=== PATIENT | male | born 1960 | race Two or more races ===

== ENCOUNTER 2017-10-07 13:16 | Emergency (ER) | payer OTHER ==
[~2017-10-07] VITALS: Ht 180.3 cm; Wt 136.1 kg
[2017-10-07] MEDS ORDERED: VANCOMYCIN 2 GM in IV DEXTROSE 5 %-0.45 % NACL 500 ML IV ONE (14:15)
[2017-10-07] MEDS ORDERED: PIPERACILLIN/TAZOBACTAM 4.5 GM in IV DEXTROSE 5% 100 ML IV ONE (14:15)
[2017-10-07] MEDS ORDERED: IV NORMAL SALINE 1000ML BAG 1,000 ML IV ONE (14:15)
[2017-10-07] MEDS ORDERED: MORPHINE SULFATE 10 MG/ML VIAL. IV ONE (14:30)
[2017-10-07] MEDS ORDERED: PIPERACILLIN/TAZO IV Push 4.5 GM VIAL. IVP ONE (14:30)
--- NOTE | 2017-10-07 14:51 | RAD ---
Indication: Scrotal swelling and sore. Concern for abscess. Technique: Grayscale, color-flow, and spectral waveform analysis was performed. Findings: Right testicle measures 5.3 x 3.2 x 2.9 cm and the left 5.0 x 3.1 x 2.8 cm. Both are homogeneous in echotexture without increase or decrease in color flow. There are small bilateral hydroceles. There is skin thickening. At the area of concern in the left scrotal wall where there is an open sore, there is a hypoechoic potential developing fluid collection without any peripheral color flow. This collection measures 1.6 x 1.2 x 0.8 cm. Impression: 1. Scrotal wall thickening with potential small phlegmonous change or developing abscess at the area of concern near the open sore. 2. Negative for testicular torsion or mass. 3. Small bilateral hydroceles.
[2017-10-07 15:22] LABS: BASO # 0.1 x10^3/uL (0.0-0.2); BASO % 1 % (0-3); EOS % 3 % (0-3); HEMOGLOBIN 15.9 g/dL (13.0-17.5); LYMPH # 1.2 x10^3/uL (1.0-4.8); LYMPH % 11 % (24-48); MEAN CORPUSCULAR HEMOGLOBIN 33 pg (25-35); MEAN CORPUSCULAR HGB CONC 33 g/dL (31-37); MEAN CORPUSCULAR VOLUME 100 fL (79-100); MONO % 8 % (0-9); NEUT % 77 % (31-73); PLATELET COUNT 293 x10^3/uL (140-400); RED CELL DISTRIBUTION WIDTH 13.1 % (11.5-14.5); WHITE BLOOD COUNT 11.2 x10^3/uL (4.0-11.0)
[2017-10-07 15:37] LABS: CALCIUM 8.8 mg/dL (8.5-10.1); CREATININE 0.9 mg/dL (0.7-1.3); POTASSIUM 4.1 mmol/L (3.5-5.1)
[2017-10-07 15:42] LABS: ALBUMIN 3.7 g/dL (3.4-5.0); ALBUMIN/GLOBULIN RATIO 0.8 (1.0-1.7); TOTAL BILIRUBIN 1.1 mg/dL (0.2-1.0); TOTAL PROTEIN 8.3 g/dL (6.4-8.2)
--- NOTE | 2017-10-07 16:06 | RAD ---
CT of the abdomen and pelvis without contrast, 10/07/2017: History: Scrotal swelling, Anuja gangrene Noncontrasted scans were obtained and extended down through the scrotal level. The unopacified liver is unremarkable. No gallbladder abnormality is seen. The pancreas shows no abnormality. The spleen is of normal size. The unopacified kidneys show no evidence of obstruction. There is mild aortoiliac calcific plaquing without evidence of aneurysm. No retroperitoneal, mesenteric or iliac adenopathy is evident. There are mildly prominent inguinal lymph nodes. The largest of these on the left measures approximately 17 x 39 mm. The prostate gland and seminal vesicles are unremarkable. The urinary bladder shows no abnormality. The bowel loops are not dilated. A portion of the appendix is visualized and it shows no abnormality. No free air or free fluid is evident in the abdomen or pelvis. There is diffuse edematous thickening of the scrotal christiansen. No discrete abscess is seen within these edematous christiansen, although that may be difficult to visualize on these noncontrast scans. There are no gas collections in the scrotal wall. The testicles are unremarkable. Postsurgical changes with instrumentation are noted in the lower thoracic spine. There are mild scattered degenerative changes in the lumbar spine. IMPRESSION: 1. No acute intra-abdominal or pelvic abnormality is detected. 2. Moderate nonspecific diffuse scrotal wall edema. 3. Mild left inguinal adenopathy. PQRS Compliance Statement: One or more of the following individualized dose reduction techniques were utilized for this examination: 1. Automated exposure control 2. Adjustment of the mA and/or kV according to patient size 3. Use of iterative reconstruction technique
--- NOTE | 2017-10-07 16:21 | PHYS DOC ---
Past Medical History Past Medical History: Arthritis, Hypertension Additional Past Medical Histor: ABSCESS Past Surgical History: Knee Replacement Additional Past Surgical Histo: BX KNEE REPLACEMENT Alcohol Use: Heavy Additional Information: PT REPORTS HE IS A DAILY DRINKER. Drug Use: None Adult General Chief Complaint Chief Complaint: ABSCESS HPI HPI Patient is a 56 year old male who presents with a large abscess to his groin with swelling, redness and pain. He denies nausea or vomiting. He denies fever at home. He states that he believes this started 5-6 days ago. He states he felt like he had an extra testicle between his legs it was very hard and then he noticed that the swelling was increasing. He started to develop swelling in his penis as well as thickening and hardness to the skin of the scrotum. He has not taken any medication for this issue. Review of Systems Review of Systems Constitutional: Denies fever or chills [] Respiratory: Denies cough or shortness of breath [] Cardiovascular: No additional information not addressed in HPI [] GI: Denies abdominal pain, nausea, vomiting, bloody stools or diarrhea [] : See HPI Musculoskeletal: Denies back pain or joint pain [] Integument: Denies rash or skin lesions [] Neurologic: Denies headache, focal weakness or sensory changes [] Endocrine: Denies polyuria or polydipsia [] All other systems were reviewed and found to be within normal limits, except as documented in this note. Current Medications Current Medications Current Medications Medications (Trade) Dose Ordered Sig/Honey Start Time Stop Time Status Last Admin Dose Admin Morphine Sulfate 5 mg 1X ONCE 10/07/17 14:30 10/07/17 14:31 DC 10/07/17 15:03 5 MG Piperacillin Sod/ Tazobactam Sod (Zosyn) 4.5 gm ONCE ONCE 10/07/17 14:30 10/07/17 14:31 DC 10/07/17 15:08 4.5 GM Piperacillin Sod/ Tazobactam Sod 4.5 gm/Dextrose 100 ml @ 200 mls/hr 1X ONCE 10/07/17 14:15 10/07/17 14:44 UNV Sodium Chloride 1,000 ml @ 1,000 mls/hr 1X ONCE 10/07/17 14:15 10/07/17 15:14 DC 10/07/17 15:04 1,000 MLS/HR Vancomycin HCl 2 gm/Dextrose/ Sodium Chloride 500 ml @ 250 mls/hr 1X ONCE 10/07/17 14:15 10/07/17 16:14 DC 10/07/17 15:50 250 MLS/HR Allergies Allergies Allergies Coded Allergies Type Severity Reaction Last Updated Verified No Known Drug Allergies 01/09/16 No Physical Exam Physical Exam Constitutional: Well developed, well nourished, no acute distress, non-toxic appearance. [] Cardiovascular:Heart rate regular rhythm, no murmur [] Lungs & Thorax: Bilateral breath sounds clear to auscultation [] Abdomen: Bowel sounds normal, soft, no tenderness, no masses, no pulsatile masses. [] : The patient has an externally swollen erythematous scrotum with a large abscess to the lower left that is indurated, no area of fluctuance noted there is considerable thickening of the scrotal skin with erythema throughout extending into the pubis, scrotum is very edematous with the edema including the penis itself, the foreskin is retractable Neurologic: Alert and oriented X 3, normal motor function, normal sensory function, no focal deficits noted. [] Psychologic: Affect normal, judgement normal, mood normal. [] Current Patient Data Vital Signs Vital Signs Date Time Temp Pulse Resp B/P (MAP) Pulse Ox O2 Delivery O2 Flow Rate FiO2 10/07/17 19:00 101 28 110/55 (73) 95 Room Air 10/07/17 13:36 98.6 98.6 Lab Values Laboratory Tests Test 10/07/17 15:09 White Blood Count 11.2 x10^3/uL (4.0-11.0) H Red Blood Count 4.80 x10^6/uL (4.30-5.70) Hemoglobin 15.9 g/dL (13.0-17.5) Hematocrit 48.0 % (39.0-53.0) Mean Corpuscular Volume 100 fL (79-100) Mean Corpuscular Hemoglobin 33 pg (25-35) Mean Corpuscular Hemoglobin Concent 33 g/dL (31-37) Red Cell Distribution Width 13.1 % (11.5-14.5) Platelet Count 293 x10^3/uL (140-400) Neutrophils (%) (Auto) 77 % (31-73) H Lymphocytes (%) (Auto) 11 % (24-48) L Monocytes (%) (Auto) 8 % (0-9) Eosinophils (%) (Auto) 3 % (0-3) Basophils (%) (Auto) 1 % (0-3) Neutrophils # (Auto) 8.6 x10^3uL (1.8-7.7) H Lymphocytes # (Auto) 1.2 x10^3/uL (1.0-4.8) Monocytes # (Auto) 0.9 x10^3/uL (0.0-1.1) Eosinophils # (Auto) 0.3 x10^3/uL (0.0-0.7) Basophils # (Auto) 0.1 x10^3/uL (0.0-0.2) Sodium Level 138 mmol/L (136-145) Potassium Level 4.1 mmol/L (3.5-5.1) Chloride Level 97 mmol/L (98-107) L Carbon Dioxide Level 31 mmol/L (21-32) Anion Gap 10 (6-14) Blood Urea Nitrogen 10 mg/dL (8-26) Creatinine 0.9 mg/dL (0.7-1.3) Estimated GFR (Cockcroft-Gault) 87.0 BUN/Creatinine Ratio 11 (6-20) Glucose Level 98 mg/dL (70-99) Lactic Acid Level 1.6 mmol/L (0.4-2.0) Calcium Level 8.8 mg/dL (8.5-10.1) Total Bilirubin 1.1 mg/dL (0.2-1.0) H Aspartate Amino Transferase (AST) 50 U/L (15-37) H Alanine Aminotransferase (ALT) 70 U/L (16-63) H Alkaline Phosphatase 137 U/L (46-116) H Total Protein 8.3 g/dL (6.4-8.2) H Albumin 3.7 g/dL (3.4-5.0) Albumin/Globulin Ratio 0.8 (1.0-1.7) L Laboratory Tests 10/07/17 15:09 Laboratory Tests 10/07/17 15:09 EKG EKG [] Radiology/Procedures Radiology/Procedures []PATIENT: MARIANA VILLEGAS ACCOUNT: [id number] : 1960 LOCATION: ER AGE: 56 SEX: M EXAM STATUS: REG ER ORD. PHYSICIAN: FÁTIMA DEXTER APRN REASON: r/o Anuja Gangrene PROCEDURE: CT ABDOMEN PELVIS WO CONTRAST CT of the abdomen and pelvis without contrast, 10/07/2017: History: Scrotal swelling, Anuja gangrene Noncontrasted scans were obtained and extended down through the scrotal level. The unopacified liver is unremarkable. No gallbladder abnormality is seen. The pancreas shows no abnormality. The spleen is of normal size. The unopacified kidneys show no evidence of obstruction. There is mild aortoiliac calcific plaquing without evidence of aneurysm. No retroperitoneal, mesenteric or iliac adenopathy is evident. There are mildly prominent inguinal lymph nodes. The largest of these on the left measures approximately 17 x 39 mm. The prostate gland and seminal vesicles are unremarkable. The urinary bladder shows no abnormality. The bowel loops are not dilated. A portion of the appendix is visualized and it shows no abnormality. No free air or free fluid is evident in the abdomen or pelvis. There is diffuse edematous thickening of the scrotal christiansen. No discrete abscess is seen within these edematous christiansen, although that may be difficult to visualize on these noncontrast scans. There are no gas collections in the scrotal wall. The testicles are unremarkable. Postsurgical changes with instrumentation are noted in the lower thoracic spine. There are mild scattered degenerative changes in the lumbar spine. IMPRESSION: 1. No acute intra-abdominal or pelvic abnormality is detected. 2. Moderate nonspecific diffuse scrotal wall edema. 3. Mild left inguinal adenopathy. PQRS Compliance Statement: One or more of the following individualized dose reduction techniques were utilized for this examination: 1. Automated exposure control 2. Adjustment of the mA and/or kV according to patient size 3. Use of iterative reconstruction technique DICTATED and SIGNED BY: EDUARD FREDERICK MD DATE: 10/07/171552 CC: FÁTIMA DEXTER APRN; JAYLA ORTEGA DO; NO PCP ~ Impressions: Signed PATIENT: MARIANA VILLEGAS ACCOUNT: [id number] : 1960 LOCATION: ER AGE: 56 SEX: M EXAM STATUS: REG ER ORD. PHYSICIAN: FÁTIMA DEXTER APRN REASON: SCROTAL SWELLING/SORE/R/O ABSCESS PROCEDURE: TESTICULAR/SCROTUM Indication: Scrotal swelling and sore. Concern for abscess. Technique: Grayscale, color-flow, and spectral waveform analysis was performed. Findings: Right testicle measures 5.3 x 3.2 x 2.9 cm and the left 5.0 x 3.1 x 2.8 cm. Both are homogeneous in echotexture without increase or decrease in color flow. There are small bilateral hydroceles. There is skin thickening. At the area of concern in the left scrotal wall where there is an open sore, there is a hypoechoic potential developing fluid collection without any peripheral color flow. This collection measures 1.6 x 1.2 x 0.8 cm. Impression: 1. Scrotal wall thickening with potential small phlegmonous change or developing abscess at the area of concern near the open sore. 2. Negative for testicular torsion or mass. 3. Small bilateral hydroceles. DICTATED and SIGNED BY: LUZ ELENA ANNA MD DATE: 10/07/17 1445 CC: FÁTIMA DEXTER APRN; JAYLA ORTEGA DO; NO PCP ~ Course & Med Decision Making Course & Med Decision Making Pertinent Labs and Imaging studies reviewed. (See chart for details) []1. Scrotal abscess Dr. Bryant was consulted in the care of this patient. He declined surgical intervention at [facility] in deference to a urologist handling the case. The patient is requesting to be transferred to [facility] for further evaluation and treatment of his abscess. The patient was given Zosyn and vancomycin in the emergency department via IV. Care of this patient has been signed off to Dr. Ortega. I did assume care of this patient as stated, and did assess the patient initially upon arrival with nurse practitioner Fátima Guerrero as well. Examination is consistent with scrotal cellulitis and abscess formation, no evidence of Anuja gangrene, imaging does not reveal evidence of any tracking gas or other concerning findings. Laboratory studies revealed mild leukocytosis , patient is resting comfortably after receiving pain medication in the emergency department, IV antibiotics initiated without issue. Patient also noted to have elevated LFTs, Patient states that he does drink daily, between 4- 10 beers, but denies any history of withdrawal symptoms. I did discuss with patient that we do not have urology available at [facility] at this time, and he will require transfer to Hospital urology is available for additional evaluation and management. Patient states that he would like to be transferred to [facility]. I did discuss findings as above with nurse practitioner Renita Boyce of the [facility] urology group, patient to be evaluated by urology at [facility], and via the transfer line, I did speak to Dr. Ronquillo, internal medicine at [facility], patient was accepted to his service for transfer to the medical telemetry bed. I did update patient on these discussions, patient remains agreeable plan as stated, and written consent was obtained. Imaging was clouded and sent to [facility]. Transportation was arranged via EMS, and patient was transferred to EMS without issue, remaining in stable condition with pain well managed at time of transport. Dragon Disclaimer Dragon Disclaimer This electronic medical record was generated, in whole or in part, using a voice recognition dictation system. Departure Impression: Primary Impression: Scrotal abscess Additional Impression: Cellulitis of scrotum Disposition: TRANSFER OTHER Condition: IMPROVED Referrals: NO PCP (PCP) Departure Departure Impression: Primary Impression: Scrotal abscess Additional Impression: Cellulitis of scrotum Disposition: 05 TRANSFER OTHER Condition: IMPROVED Referrals: NO PCP (PCP) Problem Qualifiers FÁTIMA DEXTER APRN Oct 07, 2017 16:21 JAYLA ORTEGA DO Oct 07, 2017 20:56
[2017-10-07 19:00] VITALS: BP 110/55
== END 2017-10-07 19:31 | disposition short-term general hospital (02) ==
LOC: ER 13:16
DX: N49.2 Inflammatory disorders of scrotum (principal); N43.3 Hydrocele, unspecified; I10 Essential (primary) hypertension; D72.829 Elevated white blood cell count, unspecified; F10.10 Alcohol abuse, uncomplicated
CPT/HCPCS: 36415; 74176; 76870; 80053; 83605; 85025; 87040; 96361; 96365; 96366; 96375; 99285; J2270; J2543; J3370; J7030

== ENCOUNTER → 2018-03-17 | Outpatient (CLI) | payer OTHER ==
[2018-03-17] MEDS: ZOLPIDEM 5 MG TABLET. PO (22:45)
== END | disposition home or self-care (01) ==
LOC: RT 18:27
DX: G47.33 Obstructive sleep apnea (adult) (pediatric) (principal)
CPT/HCPCS: 95810

== ENCOUNTER → 2018-12-05 | Outpatient (CLI) | payer OTHER ==
--- NOTE | 2018-12-05 08:32 | RAD ---
Examination: Ultrasound abdomen complete HISTORY: History of elevated liver enzymes FINDINGS: The pancreas, aorta, IVC are not well-visualized. There is increased echogenicity noted throughout the liver likely hepatic steatosis. The right lobe liver measures 18.8 cm. No evidence of gallstones identified. The right kidney is 11.9 cm in length. The left kidney measures 11.5 cm in length. The visualized spleen grossly appears unremarkable. The common bile duct measures 6.2 mm in transverse dimension. Examination limited due to bowel gas. IMPRESSION: 1. Increased echogenicity noted throughout the liver likely hepatic steatosis. Electronically signed by: Garrison Michele MD (12/05/2018 8:27 AM) [id number]
== END | disposition home or self-care (01) ==
LOC: US 07:57
PROVIDERS: ATTEND Family Medicine
DX: R79.89 Other specified abnormal findings of blood chemistry (principal)
CPT/HCPCS: 76700